=== PATIENT | female | born 1995 | race Caucasian/White ===

== ENCOUNTER 2016-11-17 10:09 | Emergency (ER) | payer SELFPAY ==
[~2016-11-17] VITALS: Ht 175.3 cm; Wt 80.0 kg
[~2016-11-17 10:09] MED LIST: IBUP800T23 PO; VENTAER INH
[2016-11-17 10:11] VITALS: BP 114/74; PULSE 75; RESP 12; TEMP 98.5; O2SAT 97
[2016-11-17] MEDS ORDERED: AUGM875T PO (11:37)
[2016-11-17] MEDS ORDERED: FLUT1SPR5 EACH NARE (11:37)
--- NOTE | 2016-11-17 11:39 | PD ---
HPI Chief Complaint: Cold / Flu Symptoms Time Seen by Provider: 11:37 Travel History International Travel<30 days: No Contact w/Intl Traveler<30days: No Traveled to known affect area: No History of Present Illness HPI 21-year-old female with a history of asthma presents to the emergency department for evaluation of nasal congestion, runny nose, and his pressure and cough. Patient states that she's had these symptoms intermittently over the past month. States that sometimes she feels better but then overall her symptoms have worsened and persisted. States that she has been taking over-the- counter medications without improvement of symptoms. States that she is having subjective fever over the past few nights. Denies any shortness of breath, difficulty breathing, chest pain, productive cough, wheezing, lightheadedness, ear pain, eye redness or drainage. Denies , last menstrual period 3 days ago. No other complaints. PFSH Past Medical History Asthma: Yes Diabetes: No Diminished Hearing: Yes (DECREASED HEARING RT EAR CURRENTLY) Immunizations Current: Yes ?: Not LMP: NOV 17 2016 : 0 Para: 0 Miscarriage: 0 : 0 Past Surgical History Surgical History: No Previous Surgery Social History Alcohol Use: Yes Tobacco Use: Yes (1 PPD) Substance Use: Yes (MARIJUANA) Allergies-Medications (Allergen,Severity, Reaction): Coded Allergies: Codeine (Verified Allergy, Intermediate, GI DISTRESS & DIZZY, 11/17/16) Reported Meds & Prescriptions Reported Meds & Active Scripts Active Flonase Allergy Relief Nasal [place] (Fluticasone Nasal [place]) 50 Mcg/Act [place] 50 Mcg EACH NARE BID Augmentin (Amoxicillin-Clavulanate) 875-125 mg Tab 875 Mg PO BID 10 Days not for use in CrCl <30 ml/min. Review of Systems Except as stated in HPI: all other systems reviewed are Neg Physical Exam Narrative GENERAL: Well-nourished and well-developed pleasant patient in no acute distress who is nontoxic appearing. SKIN: Warm and dry. HEAD: Normocephalic and atraumatic. Mild tenderness over maxillary and frontal sinuses. EYES: No injection, drainage, or hyphema noted. PERRLA. EOMI. ENT: Nasal mucosa is erythematous and swollen with clear drainage. Oropharynx is clear and the TMs are dull but with clear landmarks. NECK: Supple and the trachea is midline. CARDIOVASCULAR: Regular rate and rhythm. RESPIRATORY: Breath sounds are equal bilaterally with no accessory muscle use, wheezing, rhonchi, or crackles. MUSCULOSKELETAL: No obvious deformities, swelling, cyanosis, or ecchymosis is present throughout the upper and lower extremities. NEUROLOGICAL: Awake, alert, and oriented. Normal speech and gait. Cranial nerves are grossly intact. Data Data Last Documented VS Vital Signs Date Time Temp Pulse Resp B/P Pulse Ox O2 Delivery O2 Flow Rate FiO2 11/17/16 10:11 98.5 75 12 114/74 97 Room Air [facility] Medical Decision Making Medical Screen Exam Complete: Yes Emergency Medical Condition: Yes Differential Diagnosis Sinusitis versus acute versus subacute versus URI versus rhinitis Narrative Course 21-year-old female presents to the emergency department for evaluation of nasal congestion, runny nose and sinus pressure for 1 month. Patient is afebrile, vital signs are stable. Her symptoms are consistent with sinusitis. We'll treat the patient with Augmentin, Flonase and she is instructed to take over-the -counter Claritin. Instructed to follow-up with her PCP. Patient verbalizes understanding and agreement with treatment plan. Diagnosis Primary Impression: Sinusitis, acute Qualified Code: J01.20 - Acute ethmoidal sinusitis, recurrence not specified Referrals: Primary Care Physician Patient Instructions: General Instructions, Sinusitis (ED) Additional Instructions: Take [id number] Claritin. Take medication as prescribed with food and a full glass of water. Follow-up with your Primary Care Physician. Return to the ED for any acute worsening of symptoms. Med/Other Pt SpecificInfo: Prescription(s) given Scripts Fluticasone Nasal [place] (Flonase Allergy Relief Nasal [place])50 Mcg/Act Spray50 Mcg EACH NARE BID #1 BOTTLE Ref 0 Prov:Terry Saucedo MD 11/17/16 Amoxicillin-Clavulanate (Augmentin)875-125 mg [id number] Mg PO BID 10 Days Ref 0 not for use in CrCl <30 ml/min. Prov:Terry Saucedo MD 11/17/16 Disposition: 01 DISCHARGE HOME Condition: Stable Mayuri Perez Nov 17, 2016 11:39
== END 2016-11-17 12:16 | disposition home or self-care (01) ==
LOC: NETRI 10:09
DX: J01.90 Acute sinusitis, unspecified (principal); J45.909 Unspecified asthma, uncomplicated; F17.210 Nicotine dependence, cigarettes, uncomplicated
CPT/HCPCS: 99283